=== PATIENT | male | born 1965 | race African-American/Black ===

== ENCOUNTER 2016-08-22 09:22 | Emergency (ER) | payer OTHER ==
--- NOTE | ~2016-08-22 | CT71 ---
[facility] Service of [facility] RADIOLOGY TEXT RESULTS PATIENT: BINDU BOLANOS LOCATION: [facility] : 65 UNIT #: [id number] AGE: [address]: Irwin Ware MD SEX: M ORDER DR: [id number] [facility]. [place], [place] [address] [id number] E MR#: [id number] Acc #: [id number] NAME: BINDU BOLANOS : 1965 SEX: M STUDY DATE/TIME: 08/22/2016 11:25 UNIT: [facility] ROOM: STUDY DESCRIPTION: CT Head Wo Contrast Attending Physician: Irwin Ware M.D. Ordering Physician: Irwin Ware M.D. Primary Care Physician: Primary Care Physician No MEDICAL IMAGING REPORT This report is preliminary unless electronic signature is present EXAM CT head 08/17/2016 HISTORY Seizure after smoking spice; overdose today. TECHNIQUE CT head performed skull base through vertex without intravenous contrast. This CT exam was performed with one or more of the following radiation dose reduction techniques: automatic exposure control, adjustment of mA and/or kV according to patient size, and iterative reconstruction. COMPARISON No prior studies for comparison FINDINGS The brainstem unremarkable. Cerebellum and cerebral hemispheres show normal graves matter - white matter differentiation. No hemorrhage. No evidence of report was made. Midline structures nondisplaced. Basal ganglia intact. Ventricles, cisterns, sulci normal size and contour. No intra or extraaxial mass effect or abnormal intracranial fluid collection. Visualized intraorbital soft tissues have an appearance raising possibility of disconjugate gaze. Correlate with exam. Mucosal thickening in some ethmoid air cells and in the left sphenoid sinus. No indication of acute sinusitis. No fracture. IMPRESSION 1. No acute abnormalities seen in brain. If patient has ongoing neurologic symptoms, consider follow up imaging. If it would assist in patient management and if this is a new onset of seizures in a patient, brain could be further evaluated with dedicated seizure protocol MRI if patient is candidate. 2. Appearance of the intraorbital soft tissues raises possibility of STS. [facility] A Service of [facility] RADIOLOGY TEXT RESULTS PATIENT: BINDU BOLANOS LOCATION: [facility] : 65 UNIT #: [id number] AGE: [address]: Irwin Ware MD SEX: M ORDER DR: disconjugate gaze. Correlate with exam. Appearance could be an artifact related to ocular motion during image acquisition. 3. No fracture. Dictated by... Kvng Clayton M.D. THIS IS AN ELECTRONICALLY VERIFIED REPORT Kvng Clayton M.D. at 08/23/2016 7:14 PM JESUSITA/lizbeth TD: 08/22/2016 12:47 JOB #: [id number] MEDICAL IMAGING REPORT Page 1 of 1 COPY
--- NOTE | ~2016-08-22 | EKG ---
PATIENT: BINDU BOLANOS UNIT #: [id number] Ventricular Rate: 86 BPM Atrial Rate: 86 BPM P-R Interval: 216 ms QRS Duration: 88 ms Q-T Interval: 388 ms QTC Calculation(Bezet): 464 ms P [place]: 67 degrees Calculated R [place]: 37 degrees Calculated T [place]: 46 degrees Diagnosis Line: Sinus rhythm with 1st degree A-V block Diagnosis Line: Otherwise normal ECG Diagnosis Line: When compared with ECG of 30-APR-2016 20:21, Diagnosis Line: No significant change was found Diagnosis Line: Confirmed by CHUCK SANCHEZ MD ([id number]) on 08/22/2016 Diagnosis Line: 6:09:30 PM INTERPRETING MD: LAURA MARQUEZ
[~2016-08-22 09:22] MED LIST: CIPRO PO; TYLOX1 CAP 5/50 PO
[2016-08-22 12:26] LABS: BASOPHIL% 0.3 % (0-2.5); EOSINOPHIL# 0.1 X10e3 (0-0.7); EOSINOPHIL% 0.7 % (0.0-7.0); HEMOGLOBIN 13.4 gm/dL (13.0-16.0); LYMPHOCYTE# 0.9 X10e3 (1.0-3.5); MEAN CELL VOLUME 93.7 FL (83-96); MEAN CORPUSCULAR HEMOGLOBIN 31.4 PG (28-34); MEAN CORPUSCULAR HGB CONC 33.5 g/dL (30-36); MEAN PLATELET VOLUME 7.8 FL (6.5-11.5); MONOCYTE# 0.5 X10e3 (0-1.0); MONOCYTE% 5.6 % (3.0-12.0); NEUTROPHIL# 7.6 X10e3 (1.5-7.1); NEUTROPHIL% 83.4 % (40-75); PLATELET COUNT 206 X10e3 (140-420); RED BLOOD COUNT 4.27 X10e (3.90-5.60); RED CELL DISTRIBUTION WIDTH 12.8 % (11.0-15.5); WHITE BLOOD COUNT 9.1 X10e3 (4.0-10.5)
[2016-08-22 12:36] LABS: DIFF IND NO
[2016-08-22 12:56] LABS: PROTHROMBIN TIME (PATIENT) 10.5 SECONDS (9.6-11.5)
[2016-08-22 13:04] LABS: AMPHETAMINE NEG (NEG); BARBITURATES NEG (NEG); BENZODIAZEPINES POS (NEG); COCAINE NEG (NEG); MARIJUANA POS (NEG); OPIATES NEG (NEG); TRICYCLIC ANTIDEPRESSANTS NEG (NEG); U METHADONE NEG (NEG)
[2016-08-22 13:10] LABS: ALBUMIN SERUM 4.3 g/dL (3.5-5.0); ALKALINE PHOSPHATASE 50 U/L (32-92); ALT (SGPT) 31 U/L (10-40); AST (SGOT) 35 U/L (10-42); BILIRUBIN,TOTAL 0.5 mg/dL (0.2-2.0); BLOOD UREA NITROGEN 14 mg/dL (9-23); BUN/CREATININE RATIO 15.55; CALCIUM SERUM 9.1 mg/dL (8.4-10.2); CARBON DIOXIDE 24 mmol/L (22-31); CHLORIDE 107 mmol/L (100-111); CPK (CREATINE PHOSPHOKINASE) 751 IU/L (36-174); CREATININE SERUM 0.9 mg/dL (0.6-1.4); GLOM FILT RATE Estimated 114.2 mL/min (>60); GLUCOSE FASTING 92 mg/dL (70-110); POTASSIUM 4.3 mmol/L (3.5-5.1); PROTEIN TOTAL SERUM 6.8 g/dL (6.0-8.3); SALICYLATE <4.0 mg/dL; SODIUM 139 mmol/L (135-145)
[2016-08-22 13:13] LABS: ACETAMINOPHEN <10 ug/mL; ALCOHOL BLOOD <5 mg/dL (0); BILIRUBIN, DIRECT <0.1 mg/dL (0.0-0.2); BILIRUBIN,INDIRECT 0.4 mg/dL (0.0-0.9)
== END 2016-08-22 13:30 | disposition home or self-care (01) ==
LOC: CED 09:22
PROVIDERS: Emergency Medicine
DX: T50.991A Poisoning by other drugs, medicaments and biological substances, accidental (unintentional), initial encounter (principal); Z88.0 Allergy status to penicillin
CPT/HCPCS: 36415; 70450; 80048; 80076; 80307; 82550; 85025; 85610; 93005; 99284; G0480